=== PATIENT | male | born 1930 | race Caucasian/White ===

== ENCOUNTER 2017-05-12 10:36 | Observation (INO) | payer OTHER ==
[~2017-05-12] VITALS: Ht 167.6 cm; Wt 73.2 kg
[~2017-05-12 10:36] MED LIST: ALLO100T30 PO; CALC250T PO; CHOL200012 PO; CYAN100063 PO; OMEG1CAP23 PO; TAMS0.4C2 PO; UBID300C PO
[2017-05-12] MEDS ORDERED: SODIUM CHLORIDE FLUSH 10ML SYR IVF ONE ×2 (11:00→13:00)
[2017-05-12] MEDS ORDERED: ASPI-496 PO (11:23)
[2017-05-12 11:38] LABS: ASPARTATE AMINO TRANSFERASE 17 U/L (15-37)
[2017-05-12 11:42] LABS: BLOOD UREA NITROGEN 18 mg/dL (7-18)
[2017-05-12 11:45] LABS: IS PT STATUS REG ER OR PRE ER? YES
[2017-05-12] MEDS ORDERED: ACETAMINOPHEN 325 MG TABLET PO PRN (14:00)
[2017-05-12] MEDS ORDERED: DOCUSATE 100 MG CAPSULE PO PRN (14:00)
[2017-05-12] MEDS ORDERED: ONDANSETRON ODT 4 MG PO PRN (14:00)
[2017-05-12] MEDS ORDERED: hydrALAzine 20 MG/ML, 1ML IVPush PRN (14:00)
[2017-05-12] MEDS ORDERED: ENOXAPARIN 40 MG/0.4 ML SQ SCH (14:00)
[2017-05-12] MEDS ORDERED: GADOBUTROL 7.5 MMOL/7.5 ML PFS ONE (14:34)
[2017-05-12 19:55] LABS: PATH.CAST-FLAG NOT PRESENT; SPERM-FLAG NOT PRESENT; SRC-FLAG NOT PRESENT; XTAL-FLAG NOT PRESENT; YLC-FLAG NOT PRESENT
[2017-05-12 20:37] VITALS: BP 110/53
[2017-05-13 02:00] VITALS: BP 119/54
[2017-05-13 07:05] VITALS: BP 123/65
[2017-05-13 12:22] VITALS: BP 122/62
[2017-05-13] MEDS ORDERED: APIX5TAB PO (14:05)
[2017-05-13] MEDS ORDERED: ATOR20TA9 PO (14:53)
[2017-05-13] MEDS ORDERED: ENOXAPARIN 80 MG/0.8 ML SQ SCH (16:00)
== END 2017-05-13 15:27 | disposition home or self-care (01) ==
LOC: ED 12:27 → INTOOBSV 12:28 → EDIP 12:28 → UNDOADMOB 12:28 → ED 12:41 → EDIP 13:40 → 4EST 15:31
PROVIDERS: ADMIT Family Medicine; ATTEND Family Medicine
DX: G45.9 Transient cerebral ischemic attack, unspecified (principal); I48.0 Paroxysmal atrial fibrillation; J44.9 Chronic obstructive pulmonary disease, unspecified; M10.9 Gout, unspecified; C67.9 Malignant neoplasm of bladder, unspecified; C61 Malignant neoplasm of prostate; F31.9 Bipolar disorder, unspecified; I73.9 Peripheral vascular disease, unspecified; I34.0 Nonrheumatic mitral (valve) insufficiency; Z85.46 Personal history of malignant neoplasm of prostate; Z85.51 Personal history of malignant neoplasm of bladder; Z86.73 Personal history of transient ischemic attack (TIA), and cerebral infarction without residual deficits; Z87.891 Personal history of nicotine dependence; Z92.21 Personal history of antineoplastic chemotherapy; Z92.3 Personal history of irradiation; Z91.14 Patient's other noncompliance with medication regimen; Z82.3 Family history of stroke; Z82.49 Family history of ischemic heart disease and other diseases of the circulatory system
CPT/HCPCS: 36415; 70450; 70553; 71010; 71020; 80053; 80061; 81003; 84436; 84443; 84484; 85025; 85610; 85730; 93005; 93306; 93880; 97161; 97165; 99285; A9585; G0378